=== PATIENT | male | born 1990 | race African-American/Black ===

== ENCOUNTER 2020-11-26 13:43 | Emergency (ER) | payer MEDICAID, OTHER ==
[~2020-11-26] VITALS: Ht 177.8 cm; Wt 70.0 kg
[2020-11-26 14:58] VITALS: BP 123/49
== END 2020-11-26 16:49 | disposition left against medical advice (07) ==
LOC: ER 13:43
DX: Z53.21 Procedure and treatment not carried out due to patient leaving prior to being seen by health care provider (principal)